=== PATIENT | male | born 1955 | race Caucasian/White ===

== ENCOUNTER → 2016-09-07 | Outpatient (CLI) | payer OTHER | LOC: BMCIMAGING 14:59 | PROVIDERS: ATTEND Nurse Practitioner Adult Health | DX: I70.0 Atherosclerosis of aorta (principal); R05 Cough; R50.9 Fever, unspecified; R09.02 Hypoxemia ==

== ENCOUNTER → 2017-03-11 | Outpatient (CLI) | payer OTHER | LOC: BMCIMAGING 11:39 | PROVIDERS: ATTEND Nurse Practitioner Adult Health | DX: M25.572 Pain in left ankle and joints of left foot (principal); R93.6 Abnormal findings on diagnostic imaging of limbs ==